=== PATIENT | male | born 1980 | race Caucasian/White ===

== ENCOUNTER 2021-02-04 19:08 | Emergency (ER) | payer OTHER ==
[~2021-02-04] VITALS: Ht 172.7 cm; Wt 76.0 kg
[2021-02-04 19:16] VITALS: BP 138/76
--- NOTE | 2021-02-04 19:43 | PHYS DOC ---
Past History Past Surgical History: No Surgical History Alcohol Use: None General Adult EDM: Chief Complaint: EARACHE/EAR PAIN HPI: HPI: 40-year-old male presents with right ear bleeding. The patient was sitting at dinner when blood started running out of his right ear. He had no previous pain. He was not messing with her picking at his ear. He denies any trauma or insertion of foreign object. He does occasionally clean his ears with Q-tips but he has not done that in at least a week. He has not had bleeding from his ear before. He denies any falls or trauma of any kind. It is not painful. No change in hearing. Review of Systems: Review of Systems: Constitutional: Denies fever or chills Eyes: Denies change in visual acuity HENT: Bleeding from right ear Respiratory: Denies cough or shortness of breath Cardiovascular: Denies chest pain or edema GI: Denies abdominal pain, nausea, vomiting, bloody stools or diarrhea : Denies dysuria Musculoskeletal: Denies back pain or joint pain Integument: Denies rash Neurologic: Denies headache, focal weakness or sensory changes Endocrine: Denies polyuria or polydipsia Lymphatic: Denies swollen glands Psychiatric: Denies depression or anxiety Allergies: Allergies: Allergies Coded Allergies Type Severity Reaction Last Updated Verified No Known Drug Allergies 02/04/21 No Physical Exam: PE: Constitutional: Well developed, well nourished, no acute distress, non-toxic appearance. [] HENT: Normocephalic, atraumatic, right ear canal with recent blood no obvious membrane rupture or infection, oropharynx moist, no oral exudates, nose normal. [] Eyes: PERRLA, EOMI, conjunctiva normal, no discharge. [] Neck: Normal range of motion, no tenderness, supple, no stridor. [] Cardiovascular:Heart rate regular rhythm, no murmur [] Lungs & Thorax: Bilateral breath sounds clear to auscultation [] Abdomen: Bowel sounds normal, soft, no tenderness, no masses, no pulsatile masses. [] Skin: Warm, dry, no erythema, no rash. [] Back: No tenderness, no CVA tenderness. [] Extremities: No tenderness, no cyanosis, no clubbing, ROM intact, no edema. [] Neurologic: Alert and oriented X 3, normal motor function, normal sensory function, no focal deficits noted. [] Psychologic: Affect normal, judgement normal, mood normal. [] Current Patient Data: Vital Signs: Vital Signs Date Time Temp Pulse Resp B/P (MAP) Pulse Ox O2 Delivery O2 Flow Rate FiO2 02/04/21 19:16 98.2 60 16 138/76 96 Room Air EKG: EKG: [] Radiology/Procedures: Radiology/Procedures: [] Heart Score: C/O Chest Pain: N/A Risk Factors: Risk Factors: DM, Current or recent (<one month) smoker, HTN, HLP, family history of CAD, obesity. Risk Scores: Score 0 - 3: 2.5% MACE over next 6 weeks - Discharge Home Score 4 - 6: 20.3% MACE over next 6 weeks - Admit for Clinical Observation Score 7 - 10: 72.7% MACE over next 6 weeks - Early Invasive Strategies Course & Med Decision Making: Course & Med Decision Making Pertinent Labs and Imaging studies reviewed. (See chart for details) I do not see signs of infection. The patient appears to have a small skin tear of the ear canal. We attempted to rinse it out but there is coagulated blood. We did not want to be more aggressive at this time. I do not believe any further treatment is necessary. I informed the patient that if his condition worsens or any new symptoms develop that he may need antibiotic treatment. I do not believe that is necessary at this time. He is stable for discharge. [] Dragon Disclaimer: Itzel Disclaimer: This electronic medical record was generated, in whole or in part, using a voice recognition dictation system. Departure Departure: Impression: Primary Impression: Blood in right ear canal Disposition: HOME / SELF CARE / HOMELESS Condition: STABLE Referrals: ESAU VAZQUEZ MD (PCP) Patient Instructions: Draining Ear, [id number] ONI STUART DO Feb 04, 2021 19:43
== END 2021-02-04 20:02 | disposition home or self-care (01) ==
LOC: ER 19:08
DX: H92.21 Otorrhagia, right ear (principal)
CPT/HCPCS: 99281